=== PATIENT | male | born 1960 | race Caucasian/White ===

== ENCOUNTER → 2020-05-11 16:59 | Outpatient (CLI) | payer OTHER, SELFPAY ==
--- NOTE | 2020-05-11 17:06 | RAD_ITS ---
STUDY: X-RAY - LUMBAR SPINE REASON FOR EXAM: Male, 59 years old. Lower back pain running down into right leg. TECHNIQUE: 5 view(s) of the lumbar spine were obtained. COMPARISON: None FINDINGS: Normal lumbar lordosis. There is no substantial scoliosis. There is a normal alignment of the vertebrae. There is multilevel endplate spondylosis of the lumbar vertebrae. There is multi-level degenerative disc disease with multi-level disc space narrowing. There is no demonstrated fracture. The soft tissue structures are unremarkable. RAD/L/S Spine Min 4 Views IMPRESSION: Degenerative changes of the spine, as detailed above. Electronically Signed: Luis Lozano MD at 7:50 EDT , Service support ,
--- NOTE | 2020-05-11 17:14 | RAD_ITS ---
STUDY: X-RAY - CERVICAL SPINE REASON FOR EXAM: Male, 59 years old. Neck pain, specifically at the base of the skull. TECHNIQUE: 6 view(s) of the cervical spine were obtained. COMPARISON: None FINDINGS: Normal anterior atlantoaxial articulation. Normal odontoid process. There is anatomic alignment of the cervical spine from C1 to C5. There is 3 to 4 mm of anterior subluxation of C6 on C5, likely chronic. C6-T1 align anatomically. There is no soft tissue swelling or other evidence to suspect acute injury. There is straightening of the normal cervical lordosis. There is multi-level endplate spondylosis. Mild disc space narrowing throughout the C-spine except that C5-6 with her significant disc space narrowing. There is multi-level osseous foraminal stenosis. The soft tissue structures are unremarkable. RAD/Cerv Spine 4 or 5 Views IMPRESSION: Multilevel degenerative changes, most pronounced at C5-6. No demonstrated fracture or suspicious osseous lesion Electronically Signed: Luis Lozano MD at 7:51 EDT , Service support ,
== END ==
PROVIDERS: PCP Family Medicine; Referring Provider Family Medicine; Visit Provider Family Medicine
DX: M54.41 Lumbago with sciatica, right side (principal); M54.42 Lumbago with sciatica, left side; G89.29 Other chronic pain
CPT/HCPCS: 72050; 72110

== ENCOUNTER 2021-01-12 13:30 | Outpatient (RCR) | payer OTHER, SELFPAY ==
--- NOTE | 2020-11-03 12:21 | HP.PTEVAL ---
Patient's Visit Information NEELAM ESPINOSA is a 59 year old M referred to Physical Therapy by Dr. 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 Date of Evaluation: 11/03/20 Physical Therapist: Jose Murcia, PT, Cert MDT, OCS - Visit Plan Frequency: 2x /Week Duration: 4 Weeks Plan: PT INTERVENTIONS: CORE STABILIZATION, LE FLEXIBILITY AND STRENGTHENING, LUMBAR ROM,WORK CONDDTIONING /ENDURANCE - Subjective PATIENT IS A 59 YEAR OLD MALE PRESENTING TO THE CLINIC S/P PARASPINAL MICRODISECTOMY L4-5 RIGHT SIDE ON 09/15/2020. REPORTS HBP READINGS PRIOR TO SURGERY. SURGERY WAS HELD UNTIL BP COULD BE MANAGED. STATES HIS BP WAS 159/98 ON Sunday11/01/2020. REPORTS BACK PAIN STARTED NOVEMBER 2019. HAD PAIN INTO B LE BUT R>L. MRI END OF MAY 2020. LIGHT DUTY FOR WORK; LIFTING UP TO 8#. REPORTS MINIMAL BACK PAIN CURRENTLY. PAIN IS DULL IN LBP. AGGRAVETING FACTORS FORWARD FLEXION AND LIFTING INCREASES LBP. SITTING FOR LONG PERIODS CAUSES PAIN. ALLEVIATING FACTORS WALKING DECREASES PAIN. REPORTS R LE WEAKNESS ESPECIALLY AFTER LONG DURATION WALKS. PAIN MEDICATION HELPS TO DECREASE PAIN WHICH IMPROVES SLEEP. FEARFUL OF RETURN TO NORMAL ROUTINE DUE TO PAIN. RARELY HAS N/T IN R LE. BOWEL/BLADDER -.COUGHING /SNEEZING-. 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 SYMMTRIES: INTACT. PALPATION: UNREMARKABLE. OBERVATION: SKIN INSPECTION WNL. GAIT: NORMAL KAMERON MILD FOWARD POSTURE. ABLE TO WALK ON HEELS/TOES. REFLEXES: 1/3 L3-4,L5-S1 ; DENIES N/T BUT OCCASSIONALLY HAS IT. R LE MMT: QUAD 4-/5, HIP FLEXOR 4/5, DF 4/5 HAM 4/5. L LE MMT: QUAD 4/5, HIP FLEXOR 5/5, DF 5/5, HAM 5/5. LUMBAR FLEXION: MODERATE LOSS. LUMBAR EXTENSION: MINIMAL LOSS. SIDE GLIDES: MINIMAL LOSS. HAMSTRING: MIN/MOD LOSS LEFT,RIGHT MOD - Goals Goal 1:: PATIENT WILL INCREASE LE STRENGTH TO 4+/5 IN ALL PLANES FOR IMPROVED FUCNTIONAL STRENGTH AND WORK RELATED TASKS. Goal Time Frame: 4-6 Weeks Goal 2:: PATIENT WILL IMPROVE LUMBAR ROM TO MINIMAL LIMITATIONS IN ALL PLANES TO IMPROVE FUNCTIONAL MOBILITY. Goal Time Frame: 4-6 Weeks Goal 3:: I with HEP. Goal Time Frame: 4-6 Weeks Goal 4:: IMPROVE POSTURE/BODY MECHANICS 80% FOR JOB DEMNADS. Goal Time Frame: 4-6 Weeks Goal 5:: PATIENT TO IMPRO BE BACK OWESTRY SCORE BY 5 POINTS OR > TO QOL/RTW. Goal Time Frame: 4-6 Weeks - Rehabilitation Potential Physical Therapy Diagnosis: PATIENT PRESENTS S/P PARASPINAL MICRODISCECTOMY L4-5 AND RIGHT ON 09/15/2020. DEMONSTRATES LIMITED LUMBAR AROM, DECREASED LE STRENGTH R>L, TIGHTNESS IN HAMSTRINGS R>L. Rehabilitation Potential: Good - Anticipated Interventions Patient/Client Instruction: Educate patient on: Condition, Plan of Care For the Purpose of:: To decrease pain, To increase ROM, To improve muscle performance and motor function, To increase tolerance to activity/condition/position, To improve ability of physical actions for home/community/work/leisure, To increase flexibility/ROM, To improve endurance Other: RTW Therapeutic Exercise to Include: Strength training, Body mechanics, Postural training, Flexibilty training, Active ROM, Dynamic Lumbar Stabilization For the Purpose of:: To decrease pain, To increase ROM, To improve muscle performance and motor function, To increase tolerance to activity/condition/position, To improve ability of physical actions for home/community/work/leisure, To increase flexibility/ROM, To reduce risk of recurrence Other: IMPROVE STRENGTH AND STABILITY Thank you for the opportunity to evaluate your patient. For Medicare and Medicare HMO plans, please review the plan of care and approve it. It will need to be FAXED BACK to us at [phone] for Medicare purposes. For Medicare only, by signing this I certify the plan of care. Please let me know if there are questions or concerns regarding this plan of care. Physician Signature: Date:
--- NOTE | 2021-01-12 14:02 | HP.PTDCSUM ---
It has been my pleasure to treat NEELAM ESPINOSA referred by Dr. 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 Discharge Date: 01/12/21 Please see the following information for a summary of their discharge status. Subjective: Patient c/o more cervical with arms symptoms. Back is alot better. Right Back Pain Intensity (Out of 10): 0 Right Lower Extremity Pain Intensity (Out of 10): 0 % Improvement: 90 Objective/Function: POSTURE: WFL. GAIT: RECIPROCAL PATTERN. PALPATION: UNREMARABLE. NUERO: INTACT. MMT:BLE QUADS/HAMS/HIP 4/5,ANKLE 5/5. LUMBAR ROM: MIN LOSS FLEXION/EXTENSION Goal 1:: PATIENT WILL INCREASE LE STRENGTH TO 4+/5 IN ALL PLANES FOR IMPROVED FUCNTIONAL STRENGTH AND WORK RELATED TASKS. Goal Progress: Goal Met Goal 2:: PATIENT WILL IMPROVE LUMBAR ROM TO MINIMAL LIMITATIONS IN ALL PLANES TO IMPROVE FUNCTIONAL MOBILITY. Goal Progress: Goal Met Goal 3:: I with HEP. Goal Progress: Goal Met Goal 4:: IMPROVE POSTURE/BODY MECHANICS 80% FOR JOB DEMNADS. Goal Progress: Goal Met Goal 5:: PATIENT TO IMPRO BE BACK OWESTRY SCORE BY 5 POINTS OR > TO QOL/RTW. Goal Progress: Goal Met Plan: D/C TO HEP Discharge Comments: HEP,F/U WITH WITH NECK If there are questions or concerns regarding this patient's physical therapy, please feel free to call me at [phone]. Thank you for the referral of this patient. Sincerely, Jose Murcia, PT, Cert MDT, OCS
== END 2021-01-12 19:00 | disposition home or self-care (01) ==
LOC: PT 13:30
PROVIDERS: PCP Family Medicine; Referring Provider Orthopaedic Surgery Orthopaedic Surgery of the Spine; Visit Provider Orthopaedic Surgery Orthopaedic Surgery of the Spine
DX: Z48.89 Encounter for other specified surgical aftercare (principal); M51.16 Intervertebral disc disorders with radiculopathy, lumbar region
CPT/HCPCS: 97110; 97162; 97530

== ENCOUNTER 2022-02-14 17:00 | Outpatient (RCR) | payer SELFPAY ==
--- NOTE | 2021-12-06 17:31 | HP.PTEVAL_ITS ---
Patient's Visit Information NEELAM ESPINOSA is a 61 year old M referred to Physical Therapy by LINDA SANCHES with a diagnosis of IDD. Date of Evaluation: 12/06/21 Physical Therapist: Tyrone Kan, JAMEST, OCS, CSCS - Visit Plan Frequency: 3x /Week Duration: 4 Weeks Plan: 3x/week for 2-4 weeks for. ext based LB ROM and mobs. Posture, IFC with ice for pain. core strength and LB ROM table to standing. - Subjective Has R sided LBP constantly dull to surges of 9/10 in R leg to knee, r inner thigh is in constant pain. This has been present for a month and started out of no where. No changes to work or heavy lifting, nothing he can point to. Was doing regular activities on a Sunday morning and needed two tylenol and then it was back again a couple days later and never left. Went to doctor and eventually to surgeon at [facility]. Had discectomy 18 months ago, due to R leg pain all the way to his toes. L4L5 was worked on at the time. Prescribed oxycontin and prednisone which has not helped. has not slept much in last 4 nights, walks a lot of night and flips around a lot. Does get pain in testicles. no incontinence of bowel or bladder. Does feel urgency at times rarely. No exercises or bracing specifically for this. Tries to sit upright. Walks alot at work. Less pain with walking, worse sitting for too long. 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 Is able to stay moving around in the house and barn. Things are slower, basic ADLs are getting done, socks and shoes are a bitch. - Pain R LBP Pain Intensity (Out of 10): 0 Pain Intensity Range: 0, 9 - Objective Stiff walking into PT but I with short steps, very little trunk movement. Trasnfers slow and I, painful with bed trasnfers. - slump, - SLR , + femoral nerve R. Tightness obvious in HS and quads B. LB AROM ext max limited and increased pain R, flexion max limited and painful R, R SB limited and painful greater than L SB. reflexes 2/3 patella L and 1/3 R, 2/3 B achilles. Sensation LE WNL to gross light touch. Improving ROM with repeated ext. - Balance/Special Test Scores Oswestry Low Back Score: 34 - Goals Goal 1:: sleep without waking at night due to pain Goal Time Frame: 2-4 Weeks Goal 2:: Good ROM of LB without pain Goal Time Frame: 2-4 Weeks Goal 3:: Pt trasnfer chair without increased pain noticeable Goal Time Frame: 2-4 Weeks Goal 4:: Pt feel 75% back to normal Goal Time Frame: 2-4 Weeks Goal 5:: I apporop EHP to minimize future problems. Goal Time Frame: 2-4 Weeks - Rehabilitation Potential Physical Therapy Diagnosis: Disc derangement and resulting dysfunction of movement. Rehabilitation Potential: Questionable - Anticipated Interventions Patient/Client Instruction: Educate patient on: Condition, Plan of Care For the Purpose of:: To decrease pain, To increase ROM, To increase tolerance to activity/condition/position Therapeutic Exercise to Include: Strength training, Postural training, Passive ROM, Active ROM, Dynamic Lumbar Stabilization, Jas Exercises For the Purpose of:: To decrease pain, To increase ROM, To improve muscle performance and motor function, To increase tolerance to activity/condition/position, To improve gait and locomotor functions, To improve health of tissue Manual Therapy Techniques to Include: Mobilization, Passive ROM For the Purpose of:: To increase ROM IF ES: Yes Cryotherapy (ice pack, ice massage): Yes For the Purpose of:: To decrease pain Thank you for the opportunity to evaluate your patient. For Medicare and Medicare HMO plans, please review the plan of care and approve it. It will need to be FAXED BACK to us at [phone] for Medicare purposes. For Medicare only, by signing this I certify the plan of care. Please let me know if there are questions or concerns regarding this plan of care. Physician Signature: Date:
--- NOTE | 2022-01-10 17:23 | HP.PTREVAL ---
LINDA SANCHES, It has been my pleasure to treat NEELAM ESPINOSA over the last 12 visits for IDD. Please see the progress note below for an update on the physical therapy plan of care! Subjective: Everyone who sees me says everything looks better. No pain on a daily basis at all. Doing all exercises at home. Tired after gym exercises. HEP stretching really seems to help. work is fine and no problems with mobility. 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 Activities pretty normal but wants to fine tune workout. Objective/Function: Good ROM of LB with just some central tightness at end of extension, still tight in HS. Moving very well with normal gait and transfers, no pain with movement. Overall doing exceelent and plans on joining [employer] and continuing gym ex 3x/week, will continue 1x/week therapy to progress and show more agressive strengthening exercises for core, general health to add to current program Plan Plan: 1x/week x 4 weeks therapy to progress and show more agressive strengthening exercises for core, general health to add to current program, body mechanics and stretch hip flexors and HS and mobs extension to LB please. Pt to bring oswestry next session as he forgot his glasses Balance/Gait/Functional tests - Balance/Special Test Scores Oswestry Low Back Score: 34 Goals Goal 1:: sleep without waking at night due to pain Goal Time Frame: 2-4 Weeks Goal Progress: Goal Met Goal 2:: Good ROM of LB without pain Goal Time Frame: 2-4 Weeks Goal Progress: Goal Met Goal 3:: Pt trasnfer chair without increased pain noticeable Goal Time Frame: 2-4 Weeks Goal Progress: Goal Met Goal 4:: Pt feel 75% back to normal Goal Time Frame: 2-4 Weeks Goal Progress: Goal Met Goal 5:: I apporop EHP to minimize future problems. Goal Time Frame: 2-4 Weeks Goal Progress: Goal Met Goal 6:: Pt maintain improvements in pain and compliance with 3x/week gym ex as member. Goal Time Frame: 2-4 Weeks Goal Progress: NEW GOAL Anticipated Interventions Patient/Client Instruction: Educate patient on: Condition, Plan of Care For the Purpose of:: To decrease pain, To increase ROM, To increase tolerance to activity/condition/position Therapeutic Exercise to Include: Strength training, Postural training, Passive ROM, Active ROM, Dynamic Lumbar Stabilization, Jas Exercises For the Purpose of:: To decrease pain, To increase ROM, To improve muscle performance and motor function, To increase tolerance to activity/condition/position, To improve gait and locomotor functions, To improve health of tissue Manual Therapy Techniques to Include: Mobilization, Passive ROM For the Purpose of:: To increase ROM IF ES: Yes Cryotherapy (ice pack, ice massage): Yes For the Purpose of:: To decrease pain Please do not hesitate to contact me at [phone] by phone or if you have questions or concerns regarding this new plan of care! Sincerely, Tyrone Kan, DPT, OCS, CSCS
--- NOTE | 2022-02-14 17:54 | HP.PTREVAL ---
LINDA SANCHES, It has been my pleasure to treat NEELAM ESPINOSA over the last 16 visits for IDD. Please see the progress note below for an update on the physical therapy plan of care! Subjective: Overall real good. Work keeps getting busier. Exercise takes a back seat. makes sure he gets stretches in when he cannot get in to strengthen. No pain lately. feeling really good. Making it one time per week to do machines and then 1x with therapy but focussing on stretching. Objective/Function: Pt doing well with good ROM and pain control and excellent motivation to conue strength adn stretching, also with knowledge to do it. Plan Plan: f/u one month as needed adn d/c if doing well at that time. Balance/Gait/Functional tests - Balance/Special Test Scores Oswestry Low Back Score: 9 Goals Goal 1:: sleep without waking at night due to pain Goal Time Frame: 2-4 Weeks Goal Progress: Goal Met Goal 2:: Good ROM of LB without pain Goal Time Frame: 2-4 Weeks Goal Progress: Goal Met Goal 3:: Pt trasnfer chair without increased pain noticeable Goal Time Frame: 2-4 Weeks Goal Progress: Goal Met Goal 4:: Pt feel 75% back to normal Goal Time Frame: 2-4 Weeks Goal Progress: Goal Met Goal 5:: I apporop EHP to minimize future problems. Goal Time Frame: 2-4 Weeks Goal Progress: Goal Met Goal 6:: Pt maintain improvements in pain and compliance with 3x/week gym ex as member. Goal Time Frame: 2-4 Weeks Goal Progress: Goal Met Anticipated Interventions Patient/Client Instruction: Educate patient on: Condition, Plan of Care For the Purpose of:: To decrease pain, To increase ROM, To increase tolerance to activity/condition/position Therapeutic Exercise to Include: Strength training, Postural training, Passive ROM, Active ROM, Dynamic Lumbar Stabilization, Jas Exercises For the Purpose of:: To decrease pain, To increase ROM, To improve muscle performance and motor function, To increase tolerance to activity/condition/position, To improve gait and locomotor functions, To improve health of tissue Manual Therapy Techniques to Include: Mobilization, Passive ROM For the Purpose of:: To increase ROM IF ES: Yes Cryotherapy (ice pack, ice massage): Yes For the Purpose of:: To decrease pain Please do not hesitate to contact me at [phone] by phone or if you have questions or concerns regarding this new plan of care! Sincerely, Tyrone Kan, DPT, OCS, CSCS
--- NOTE | 2022-03-14 19:06 | HP.PT.NRP ---
NEELAM ESPINOSA was seen in my office for initial evaluation on 12/06/21. The following Plan of Care was established for this patient: Initial Frequency: 3x /Week Initial Duration: 4 Weeks Patient/Client Instruction: Educate patient on: Condition, Plan of Care For the Purpose of:: To decrease pain, To increase ROM, To increase tolerance to activity/condition/position Therapeutic Exercise to Include: Strength training, Postural training, Passive ROM, Active ROM, Dynamic Lumbar Stabilization, Jas Exercises For the Purpose of:: To decrease pain, To increase ROM, To improve muscle performance and motor function, To increase tolerance to activity/condition/position, To improve gait and locomotor functions, To improve health of tissue Manual Therapy Techniques to Include: Mobilization, Passive ROM For the Purpose of:: To increase ROM IF ES: Yes Cryotherapy (ice pack, ice massage): Yes For the Purpose of:: To decrease pain This patient was last seen in our office 02/14/22. Pertinent comments regarding their Physical therapy will appear below: Pt seen 16 visits of POC and was 90% better. He was to f/u this week but cancelled stating he has no pain and is doing his home exercises. Not following up and will disocontinue at this time. At this point I will be discontinuing this patient from physical therapy. I would be happy to see this patient again in the future if found appropriate by the physician. Thank you! Tyrone Kan, DPT, OCS, CSCS Balance/Gait/Functional tests - Balance/Special Test Scores Oswestry Low Back Score: 9
== END 2022-02-14 19:00 | disposition home or self-care (01) ==
LOC: PT 17:00
PROVIDERS: PCP Family Medicine
DX: M51.9 Unspecified thoracic, thoracolumbar and lumbosacral intervertebral disc disorder (principal)
CPT/HCPCS: 97014; 97110; 97161; 97530; G0283

== ENCOUNTER → 2023-01-25 | Outpatient (CLI) | payer OTHER, SELFPAY ==
[2023-01-25 06:46] LABS: Absolute Lymphocyte Count 2.87 X10^3/uL (0.83-4.51); Absolute Neutrophil Count 5.3 X10^3/uL (2.0-7.7); Basophil# 0.06 X10^3/uL; Basophil% 0.6 % (0-1); Eosinophil# 0.21 X10^3/uL; Eosinophils% 2.2 % (0-5); Hematocrit 48.1 % (40-54); Hemoglobin 15.4 g/dL (13.0-16.5); Lymphocyte # 2.87 X10^3/ul (0.83-4.51); Lymphocyte % 30.3 % (19-41); Mean Corpuscular Hgb 30.6 pg (27.0-32.0); Mean Corpuscular Volume 95.4 fL (80-94); Mean Platelet Vol. 9.3 fl (6.2-12.0); Monocyte% 10.5 % (0-10); NRBC Flagged by Analyzer 0 % (0-5); Platelet Count 341 K/mm3 (150-450); RBC Distribution Width CV 11.7 % (11.6-14.6); RBC Distribution Width SD 40.6 fl (35.1-43.9); Red Blood Count 5.04 M/mm3 (4.6-6.2); White Blood Count 9.5 K/mm3 (4.4-11.0)
[2023-01-25 07:19] LABS: ALB/GLOB Ratio 1.1 RATIO (0.9-2.4); AST(SGOT) 26 U/L (15-37); Alanine Aminotransfer ALT/SGPT 26 U/L (16-61); Alkaline Phosphatase 113 U/L (45-117); Anion Gap 6 (5-15); BUN 15 mg/dL (7-18); BUN/Creat Ratio 13.5 RATIO (10-20); Calcium,Total 9.2 mg/dL (8.5-10.1); Chloride 104 mmol/L (98-107); Cholesterol 158 mg/dL (200); Creatinine, Serum 1.11 mg/dL (0.70-1.30); EST Glomerular Filtration Rate 72 mL/min (>60); Est Glom Filt Rate - Afr Amer 87 mL/min (>60); Globulin 3.5 g/dL (2.2-4.2); Glucose 105 mg/dL (74-106); High Density Lipoprotein 49 mg/dL; PSA,Total - Annual Screen 0.72 ng/mL (0.00-4.00); Potassium 4.3 mmol/L (3.5-5.1); Protein, Total 7.5 g/dL (6.4-8.2); Sodium Level 138 mmol/L (136-145); Triglycerides 96 mg/dL; Very Low Density Lipoprotein 19 mg/dL (5-40)
== END | disposition home or self-care (01) ==
LOC: LAB 06:32
PROVIDERS: PCP Family Medicine; Referring Provider Family Medicine; Visit Provider Family Medicine
DX: I10 Essential (primary) hypertension (principal); E78.00 Pure hypercholesterolemia, unspecified; Z12.5 Encounter for screening for malignant neoplasm of prostate
CPT/HCPCS: 36415; 80053; 80061; 84153; 85025; G0103

== ENCOUNTER → 2024-01-22 | Outpatient (CLI) | payer OTHER, SELFPAY ==
[2024-01-22 07:15] LABS: Absolute Lymphocyte Count 2.94 X10^3/uL (0.83-4.51); Absolute Neutrophil Count 4.9 X10^3/uL (2.0-7.7); Basophil# 0.09 X10^3/uL; Eosinophil# 0.32 X10^3/uL; Eosinophils% 3.4 % (0-5); Hematocrit 44.1 % (40-54); Hemoglobin 14.6 g/dL (13.0-16.5); Lymphocyte # 2.94 X10^3/ul (0.83-4.51); Lymphocyte % 31.2 % (19-41); Mean Corp Hgb Conc 33.1 g/dL (32-36); Mean Corpuscular Hgb 31.3 pg (27.0-32.0); Mean Corpuscular Volume 94.6 fL (80-94); Mean Platelet Vol. 9.3 fl (6.2-12.0); Monocyte% 11.7 % (0-10); NRBC Flagged by Analyzer 0 % (0-5); Neutrophil # 4.94 X10^3/uL (2.7-7.7); Neutrophil % 52.5 % (47-70); Platelet Count 318 K/mm3 (150-450); RBC Distribution Width CV 11.7 % (11.6-14.6); RBC Distribution Width SD 40.8 fl (35.1-43.9); Red Blood Count 4.66 M/mm3 (4.6-6.2); White Blood Count 9.4 K/mm3 (4.4-11.0)
[2024-01-22 07:56] LABS: ALB/GLOB Ratio 1.1 RATIO (0.9-2.4); AST(SGOT) 24 U/L (15-37); Alanine Aminotransfer ALT/SGPT 22 U/L (16-61); Albumin, Serum 3.6 g/dL (3.2-5.0); Alkaline Phosphatase 112 U/L (45-117); Anion Gap 3 (5-15); BUN 11 mg/dL (7-18); BUN/Creat Ratio 10.7 RATIO (10-20); Chloride 108 mmol/L (98-107); Cholesterol 164 mg/dL (200); Creatinine, Serum 1.03 mg/dL (0.70-1.30); EST Glomerular Filtration Rate 78 mL/min (>60); Est Glom Filt Rate - Afr Amer 94 mL/min (>60); Globulin 3.3 g/dL (2.2-4.2); Glucose 98 mg/dL (74-106); High Density Lipoprotein 45 mg/dL; PSA,Total - Annual Screen 0.54 ng/mL (0.00-4.00); Potassium 4.3 mmol/L (3.5-5.1); Protein, Total 6.9 g/dL (6.4-8.2); Sodium Level 139 mmol/L (136-145); Triglycerides 87 mg/dL; Very Low Density Lipoprotein 17 mg/dL (5-40)
== END | disposition home or self-care (01) ==
LOC: LAB 06:25
PROVIDERS: PCP Family Medicine; Referring Provider Family Medicine; Visit Provider Family Medicine
DX: Z00.00 Encounter for general adult medical examination without abnormal findings (principal); Z12.5 Encounter for screening for malignant neoplasm of prostate
CPT/HCPCS: 36415; 80053; 80061; 84153; 85025; G0103

== ENCOUNTER → 2025-02-18 | Outpatient (CLI) | payer OTHER, SELFPAY ==
[2025-02-18 06:58] LABS: Absolute Lymphocyte Count 3.22 X10^3/uL (0.83-4.51); Absolute Neutrophil Count 4.4 X10^3/uL (2.0-7.7); Basophil# 0.09 X10^3/uL; Eosinophil# 0.26 X10^3/uL; Eosinophils% 2.9 % (0-5); Hematocrit 44.1 % (40-54); Hemoglobin 14.6 g/dL (13.0-16.5); Lymphocyte # 3.22 X10^3/ul (0.83-4.51); Lymphocyte % 35.7 % (19-41); Mean Corp Hgb Conc 33.1 g/dL (32-36); Mean Corpuscular Hgb 31.2 pg (27.0-32.0); Mean Corpuscular Volume 94.2 fL (80-94); Mean Platelet Vol. 9.5 fl (6.2-12.0); Monocyte# 1.04 X10^3/uL; Monocyte% 11.5 % (0-10); NRBC Flagged by Analyzer 0 % (0-5); Neutrophil # 4.38 X10^3/uL (2.7-7.7); Neutrophil % 48.7 % (47-70); Platelet Count 275 K/mm3 (150-450); RBC Distribution Width CV 11.9 % (11.6-14.6); RBC Distribution Width SD 41.1 fl (35.1-43.9); Red Blood Count 4.68 M/mm3 (4.6-6.2)
[2025-02-18 07:28] LABS: ALB/GLOB Ratio 1.4 RATIO (0.9-2.4); AST(SGOT) 32 U/L (<=37); Alanine Aminotransfer ALT/SGPT 19 U/L (<=46); Albumin, Serum 4.1 g/dL (3.4-4.8); Alkaline Phosphatase 118 U/L (40-129); Anion Gap 9 (5-15); BUN 17 mg/dL (4-19); BUN/Creat Ratio 15.3 RATIO (10-20); Calcium,Total 8.9 mg/dL (7.6-11.0); Chloride 106 mmol/L (98-108); Cholesterol 165 mg/dL (<=200); Creatinine, Serum 1.12 mg/dL (0.70-1.20); EST Glomerular Filtration Rate 74 (>60); Globulin 2.9 g/dL (2.2-4.2); Glucose 84 mg/dL (70-99); High Density Lipoprotein 45 mg/dL; Low Density Lipoprotein Calc. 107 mg/dL; PSA,Total - Annual Screen 0.68 ng/mL (0.02-4.00); Potassium 4.3 mmol/L (3.3-5.1); Sodium Level 140 mmol/L (133-145); Total Bilirubin 0.43 mg/dL (0.00-1.30); Triglycerides 67 mg/dL; Very Low Density Lipoprotein 13 mg/dL (5-40); cholesterol:hdl ratio screen 3.68
== END | disposition home or self-care (01) ==
LOC: LAB 06:16
PROVIDERS: PCP Family Medicine; Referring Provider Family Medicine; Visit Provider Family Medicine
DX: Z00.00 Encounter for general adult medical examination without abnormal findings (principal); I10 Essential (primary) hypertension; Z13.220 Encounter for screening for lipoid disorders; Z12.5 Encounter for screening for malignant neoplasm of prostate
CPT/HCPCS: 36415; 80053; 80061; 84153; 85025; G0103